=== PATIENT | male | born 1990 | race Caucasian/White ===

== ENCOUNTER 2023-08-25 19:02 | Emergency (ER) | payer BC, OTHER ==
[2023-08-25] MEDS ORDERED: Lidocaine 1% 5 ML VIAL ONE (19:36)
[2023-08-25] MEDS ORDERED: Bacitracin/Neomycin/Polymyxin B Oint 0.9 GM U/D Packet ONE (19:46)
== END 2023-08-25 20:10 | disposition home or self-care (01) ==
LOC: LL.ED 19:02
DX: S51.812A Laceration without foreign body of left forearm, initial encounter (principal); E66.9 Obesity, unspecified; W26.8XXA Contact with other sharp object(s), not elsewhere classified, initial encounter
CPT/HCPCS: 12005; 99282; 99283; J3490

== ENCOUNTER 2025-01-26 19:52 | Emergency (ER) | payer BC ==
[2025-01-26] MEDS ORDERED: Naloxone 0.4 MG/ML SDV IVPUSH PRN (19:56)
[2025-01-26] MEDS: Ondansetron 4 MG/2 ML SDV IVPUSH PRN (19:59)
[2025-01-26] MEDS: Ketorolac 15 MG/ML SDV IVPUSH ONE (20:01)
[2025-01-26] MEDS: fentaNYL 50 MCG/ML SDV IVPUSH ONE (20:02)
[2025-01-26] MEDS: Sodium Chloride 0.9% 10 ML Syringe FLUSH PRN (20:03)
[2025-01-26 20:21] LABS: INR 1.1 (0.9-1.1); PROTHROMBIN TIME 10.7 SEC (9.0-11.1)
[2025-01-26 20:26] LABS: ALANINE AMINOTRANSFERASE,ALT 39 U/L (12-78); ALBUMIN 4.5 g/dL (3.4-5.0); ALKALINE PHOSPHATASE 59 IU/L (46-116); ANION GAP 10.4 meq/L (7-15); ASPARTATE AMNIOTRANSFERASE,AST 25 U/L (15-37); BILIRUBIN TOTAL 0.5 mg/dL (0.2-1.0); BLOOD UREA NITROGEN,BUN 23 mg/dL (7-18); CALCIUM 9.4 mg/dL (8.5-10.1); CARBON DIOXIDE,CO2 29.6 mmol/L (21.0-32.0); CHLORIDE,CL 104 mmol/L (98-107); CREATININE 1.14 mg/dL (0.51-1.17); GLUCOSE RANDOM 104 mg/dL (70-99); MAGNESIUM 2.1 mg/dL (1.8-2.4); POTASSIUM,K 3.6 mmol/L (3.5-5.1); PROTEIN TOTAL,TP 8.2 g/dL (6.4-8.2); SODIUM,NA 144 mmol/L (136-145)
[2025-01-26 20:32] LABS: BASOPHILS ABSOLUTE AUTO 0.04 K/uL (0.00-0.20); BASOPHILS PERCENT AUTO 0.3 % (0.0-2.0); EOSINOPHILS PERCENT AUTO 1.6 % (0.0-5.0); HEMATOCRIT 43.5 % (39.0-49.0); HEMOGLOBIN 14.9 g/dL (13.1-16.8); IMMATURE GRAN ABSOLUTE AUTO 0.02 10^3/uL (0.00-0.04); IMMATURE GRAN PERCENT AUTO 0.2 % (0.0-0.4); LYMPHOCYTES ABSOLUTE AUTO 6.75 K/uL (0.50-3.50); LYMPHOCYTES PERCENT AUTO 54.7 % (10.0-50.0); MEAN CORPUSCULAR HEMOGLOBIN 28.2 pg (28.2-33.3); MEAN CORPUSCULAR HGB CONC 34.3 g/dL (31.7-36.0); MEAN CORPUSCULAR VOLUME 82.4 fL (84.0-98.0); MONOCYTES ABSOLUTE AUTO 0.91 K/uL (0.00-1.00); MONOCYTES PERCENT AUTO 7.4 % (2.0-14.0); NEUTROPHILS ABSOLUTE AUTO 4.43 K/uL (1.40-7.00); NEUTROPHILS PERCENT AUTO 35.8 % (45.0-80.0); PLATELET COUNT,PLT 289 K/uL (150-350); RED BLOOD CELL COUNT 5.28 M/uL (4.33-5.41); RED CELL DISTRIBUTION WIDTH 13.2 % (11.2-14.1); WHITE BLOOD CELL COUNT,WBC 12.4 K/uL (4.0-10.2)
[2025-01-26] MEDS: Lactated Ringers 1,000 ML IV ONE (20:32)
[2025-01-26 20:33] LABS: ESTIMATED GFR 87 mL/min (>=60)
[2025-01-26] MEDS: Tamsulosin 0.4 MG Cap.ER PO ONE (20:49)
[2025-01-26 20:55] VITALS: BP 132/78; PULSE 80
[2025-01-26 21:33] LABS: APPEARANCE,URINE SLIGHTLY CLOUDY; BILIRUBIN,URINE NEGATIVE (NEGATIVE); COLOR,URINE YELLOW; GLUCOSE,URINE NEGATIVE (NEGATIVE); KETONES,URINE 15 mg/dL (NEGATIVE); LEUKOCYTE ESTERASE,URINE NEGATIVE (NEGATIVE); NITRITE,URINE NEGATIVE (NEGATIVE); OCCULT BLOOD,URINE TRACE-INTACT (NEGATIVE); PROTEIN,URINE TRACE mg/dL (NEGATIVE); UROBILINOGEN,URINE 0.2 E.U./dL (0.2-1.0)
[2025-01-26 21:41] LABS: AMORPHOUS SEDIMENT,URINE MANY /HPF (0/HPF); BACTERIA,URINE NOT SEEN /HPF (NONE TO FEW); EPITHELIAL CELLS,URINE FEW /LPF; WBC,URINE 0-5 /HPF
[2025-01-26] MEDS: Take Home: Acetaminophen/HYDROcodone 325-5 MG, 5 Tab Pack PO ONE (22:02)
== END 2025-01-26 22:05 | disposition home or self-care (01) ==
LOC: LL.ED 19:52
DX: N13.2 Hydronephrosis with renal and ureteral calculous obstruction (principal); Z79.899 Other long term (current) drug therapy
CPT/HCPCS: 36415; 74176; 80053; 81001; 83735; 85025; 85610; 96361; 96374; 96375; 99284; 99284-25; A9270-GY; J1885; J2405; J3010; J7120